=== PATIENT | male | born 1940 | race Caucasian/White ===

== ENCOUNTER 2018-02-09 14:22 | Emergency (ER) | payer OTHER, MEDICARE ==
[~2018-02-09] VITALS: Ht 167.6 cm; Wt 65.8 kg
--- NOTE | 2018-02-09 14:40 | NUR ---
pt is in room #2a. dr Natarajan evaluated the pt.
[2018-02-09 15:10] LABS: BASOPHILS # (AUTO) 0.1 K/uL (0.0-8.0); BASOPHILS % (AUTO) 0.5 % (0.0-2.0); EOSINOPHILS # (AUTO) 0.1 K/uL (0.0-0.7); EOSINOPHILS % (AUTO) 0.5 % (0.0-7.0); HEMATOCRIT 46.2 % (36.7-47.1); HEMOGLOBIN 15.8 g/dL (12.5-16.3); LYMPHOCYTES # (AUTO) 1.1 K/uL (20.0-40.0); LYMPHOCYTES % (AUTO) 8.6 % (20.5-51.5); MEAN CORPUSCULAR HEMOGLOBIN 31.7 uug (23.8-33.4); MEAN CORPUSCULAR HGB CONC 34 g/dL (32.5-36.3); MEAN CORPUSCULAR VOLUME 92.8 fL (73.0-96.2); MONOCYTES # (AUTO) 0.9 K/uL (2.0-10.0); MONOCYTES % (AUTO) 6.6 % (0.0-11.0); NEUTROPHILS # (AUTO) 10.8 K/uL (1.8-8.9); NEUTROPHILS % (AUTO) 83.8 % (38.5-71.5); PLATELET COUNT (AUTO) 204 K/uL (152-348); RED BLOOD CELL COUNT(AUTO) 4.98 MIL/uL (4.06-5.63)
[2018-02-09] MEDS ORDERED: ASPI81TA31 PO (15:16)
[2018-02-09] MEDS ORDERED: INSULIN (15:16)
[2018-02-09] MEDS ORDERED: METFORMIN (15:16)
[2018-02-09] MEDS ORDERED: GLIPIZIDE (15:16)
[2018-02-09] MEDS ORDERED: BP MEDICATION (15:16)
--- NOTE | 2018-02-09 15:16 | NUR ---
PT UNABLE TO GIVE MEDS AND DOSAGES OF HIS MEDS HE CANNOT RECALL THEM - STATES HE HAS NOT REALLY PAID ATTENTION TO THE DOSAGES .
[2018-02-09 15:23] LABS: CARBON DIOXIDE 26 mmol/L (21-32); CHLORIDE 103 mmol/L (98-107); CREATININE 1.1 mg/dL (0.6-1.3); GLUCOSE 142 mg/dL (74-106); POTASSIUM 3.2 mmol/L (3.5-5.1); UREA NITROGEN, BLOOD 18 mg/dL (7-18)
[2018-02-09 15:39] LABS: ALANINE AMINOTRANSFERASE 24 U/L (16-63); ALKALINE PHOSPHATASE 102 U/L (50-136); ASPARTATE AMINOTRANSFERASE 19 U/L (15-37); BILIRUBIN,DIRECT 0.1 mg/dL (0.0-0.2); BILIRUBIN,TOTAL 0.5 mg/dL (0.2-1.0); TOTAL PROTEIN, SERUM 7.9 g/dL (6.4-8.2)
--- NOTE | 2018-02-09 19:21 | NUR ---
PT DECIDED TO LEAVE HOSPITAL AMA. DR OLIVO EXPLAINED ALL RISKS OF LEAVING HOSPITAL AMA TO THE PT. PT VERBALIZED FULL UNDERSTANDING OF 's INSTRUCTIONS. PT SIGNED AMA FORM AND LEFT HOSPITAL WITH HIS SISTER. GAIT IS STABLE. NO S/S OF DISTRESS AT THE TIME OF DISCHARGE. NO NAUSE, NO DIZZINESS, PT DENIES PAIN.
[2018-02-09 19:25] VITALS: BP 142/81
== END 2018-02-09 19:27 | disposition left against medical advice (07) ==
LOC: ER 14:22 → TELE 18:52 → UNDOADMIN 18:52
DX: R55 Syncope and collapse (principal); I10 Essential (primary) hypertension; E11.9 Type 2 diabetes mellitus without complications; E78.5 Hyperlipidemia, unspecified
CPT/HCPCS: 36415; 71045; 80048; 80076; 83880; 84484; 85025; 85730; 93005; 99285; A4663; 70030-TC

== ENCOUNTER 2020-05-21 05:40 | Inpatient (IN) | payer MEDICARE, OTHER ==
[~2020-05-21] VITALS: Ht 172.7 cm; Wt 69.1 kg
[~2020-05-21 05:40] MED LIST: ASPI81TA31 PO; BP MEDICATION; GLIPIZIDE; INSULIN; METFORMIN
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
--- NOTE | 2020-05-21 06:30 | NUR ---
Dr Thomas at bedside for MSE.
[2020-05-21 06:33] LABS: BASOPHILS % (AUTO) 0.2 % (0.0-2.0); EOSINOPHILS # (AUTO) 0.1 K/uL (0.0-0.7); EOSINOPHILS % (AUTO) 0.6 % (0.0-7.0); HEMATOCRIT 49.2 % (36.7-47.1); HEMOGLOBIN 16.9 g/dL (12.5-16.3); LYMPHOCYTES # (AUTO) 0.8 K/uL (20.0-40.0); LYMPHOCYTES % (AUTO) 7.6 % (20.5-51.5); MEAN CORPUSCULAR HEMOGLOBIN 31.6 uug (23.8-33.4); MEAN CORPUSCULAR HGB CONC 34 g/dL (32.5-36.3); MEAN CORPUSCULAR VOLUME 91.7 fL (73.0-96.2); MONOCYTES # (AUTO) 0.7 K/uL (2.0-10.0); MONOCYTES % (AUTO) 6.4 % (0.0-11.0); NEUTROPHILS # (AUTO) 9.1 K/uL (1.8-8.9); NEUTROPHILS % (AUTO) 85.2 % (38.5-71.5); PLATELET COUNT (AUTO) 393 K/uL (152-348); RED BLOOD CELL COUNT(AUTO) 5.36 MIL/uL (4.06-5.63); WHITE BLOOD COUNT (AUTO) 10.6 K/uL (3.6-10.2)
[2020-05-21] MEDS ORDERED: FAMOTIDINE. 20 MG/2 ML VIAL IV ONE ×2 (06:45→06:50)
[2020-05-21] MEDS ORDERED: IV NORMAL SALINE 500 ML BAG IV ONE (06:45)
[2020-05-21 06:55] LABS: ALANINE AMINOTRANSFERASE 26 U/L (16-63); ALKALINE PHOSPHATASE 127 U/L (50-136); ASPARTATE AMINOTRANSFERASE 18 U/L (15-37); BILIRUBIN,DIRECT 0.5 mg/dL (0.0-0.2); BILIRUBIN,TOTAL 1.3 mg/dL (0.2-1.0); CARBON DIOXIDE 26 mmol/L (21-32); CHLORIDE 97 mmol/L (98-107); CREATININE 1.4 mg/dL (0.6-1.3); POTASSIUM 3.9 mmol/L (3.5-5.1); UREA NITROGEN, BLOOD 29 mg/dL (7-18)
[2020-05-21] MEDS ORDERED: IV NORMAL SALINE 250 ML BAG IV ONE (07:00)
[2020-05-21 07:03] LABS: GLUCOSE 606 mg/dL (74-106)
[2020-05-21 07:03] LABS: ETHANOL < 3 MG/DL (0-0)
--- NOTE | 2020-05-21 07:14 | NUR ---
Recieved pt in bed, dozing off. NAD noted.
[2020-05-21 07:20] LABS: MAGNESIUM 2.1 mg/dL (1.8-2.4)
[2020-05-21] MEDS ORDERED: PIPERACILLIN SODIUM/TAZOBACTAM 3.375 G in IV DEXTROSE 5% 50 ML IV ONE (07:30)
[2020-05-21] MEDS ORDERED: PIPERACILLIN/TAZOBACTAM/D5W 50 ML IV ONE (07:40)
[2020-05-21] MEDS ORDERED: ONDANSETRON 4 MG/2 ML VIAL ONE (08:12)
[2020-05-21] MEDS ORDERED: ONDANSETRON 4 MG/2 ML VIAL IM ONE (08:15)
[2020-05-21 09:06] LABS: *AMPHETAMINE, URINE NEGATIVE (NEGATIVE); *CANNABINOID, URINE NEGATIVE (NEGATIVE); *COCCAINE, URINE NEGATIVE (NEGATIVE); *OPIATE, URINE NEGATIVE (NEGATIVE); *PHENCYCLIDINE SCREEN,URINE NEGATIVE (NEGATIVE)
--- NOTE | 2020-05-21 09:10 | NUR ---
Pt able to tolorate Po fluids. made aware.
[2020-05-21 09:14] LABS: *BILIRUBIN,URIN NEGATIVE (NEGATIVE); *BLOOD, URINE 1+ (NEGATIVE); *CLARITY,URINE CLEAR (CLEAR); *COLOR,URINE YELLOW (YELLOW); *KETONES,URINE 2+ (NEGATIVE); LEUKOCYTE ESTERASE ,URINE NEGATIVE (NEGATIVE); NITRITE, URINE NEGATIVE (NEGATIVE); UGLUCOSE 2+ (NEGATIVE)
--- NOTE | 2020-05-21 09:26 | NUR ---
JOSE MANUEL Gracia spoke to Shamika Melara pt to be admitted to [facility].
--- NOTE | 2020-05-21 10:00 | NUR ---
Admitted via [place]. Alert & forgetful with periods of confusion. Viviane Melara ELIGIBILITY WORKER here.
[2020-05-21 10:27] VITALS: BP 133/77
[2020-05-21] MEDS ORDERED: ACETAMINOPHEN 325 MG TABLET PO PRN (11:00)
[2020-05-21] MEDS ORDERED: ONDANSETRON 4 MG/2 ML VIAL IV PRN (11:00)
[2020-05-21] MEDS ORDERED: Z GUARD REMEDY PASTE 57 GM TUBE TOP PRN (11:00)
[2020-05-21] MEDS ORDERED: ZOLPIDEM 5 MG TABLET PO PRN (11:00)
[2020-05-21] MEDS ORDERED: HYDROCODONE/APAP 5-325MG TABLET PO PRN (11:00)
[2020-05-21] MEDS ORDERED: DEXTROSE 50% 50 ML DISP.SYRIN IV PRN (11:00)
[2020-05-21] MEDS ORDERED: MAGNESIUM HYDROXIDE 30 ML LIQUID UDC PO PRN (11:00)
[2020-05-21] MEDS ORDERED: ENOXAPARIN SODIUM 30 MG/0.3 ML DISP.SYRIN SQ SCH (11:00)
[2020-05-21 11:35] LABS: SQUAMOUS EPITHELIAL CELL,UR FEW /HPF (NONE SEEN); WBC,URINE 0-3 /HPF (0-3)
[2020-05-21 11:36] LABS: BACTERIA,URINE FEW /HPF (NONE SEEN)
[2020-05-21] MEDS: ENOXAPARIN SODIUM 40 MG/0.4 ML DISP.SYRIN SQ SCH (11:55)
[2020-05-21] MEDS: BLOOD SUGAR DIAGNOSTIC 1 EACH STRIP VI SCH ×3 (12:21→19:57)
[2020-05-21] MEDS: INSULIN REGULAR, HUMAN 300 UNIT/3 ML VIAL SQ PRN (12:26)
--- NOTE | 2020-05-21 12:45 | NUR ---
INCREASED CONFUSION & AGITATION. CLIMBING OOB, DC'D TELE MULTIPLE TIMES. REPLACED PRN. AIR CONTROL ELECTRONICS OPERATOR AWARE OF CONDITION.
[2020-05-21] MEDS: LORAZEPAM 2 MG/1 ML VIAL IV PRN ×2 (14:15→20:08)
--- NOTE | 2020-05-21 14:15 | NUR ---
MED IV fOR AGITATION WITH MINIMAL EFFECT AFTER 45 MINS. PLACED IN ANTONIO CHAIR. PATIENT CLIMBED OUT OF CHAIR. ASSISTED TO BED.
[2020-05-21] MEDS: IV NS 1000 ML 1,000 ML IV PRN (14:30)
[2020-05-21 16:09] VITALS: BP 127/81
--- NOTE | 2020-05-21 18:30 | NUR ---
CONDITION UNCHANGED. 1:1 SITTER ORDERED FOR SAFETY.
[2020-05-21 20:00] VITALS: BP 158/68
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
[2020-05-21] MEDS: FAMOTIDINE. 20 MG/2 ML VIAL IV SCH (21:38)
[2020-05-22] VITALS: BP 109/55
--- NOTE | 2020-05-22 01:30 | NUR ---
REFUSING SCD HOSE. MAKING HIM MORE AGITATED.
[2020-05-22] MEDS: IV NS 1000 ML 1,000 ML IV PRN (03:12)
[2020-05-22] MEDS: BLOOD SUGAR DIAGNOSTIC 1 EACH STRIP VI SCH ×8 (03:20→23:33)
[2020-05-22] MEDS: INSULIN REGULAR, HUMAN 300 UNIT/3 ML VIAL SQ PRN ×4 (03:22→23:35)
[2020-05-22 04:00] VITALS: BP 106/85
[2020-05-22] MEDS ORDERED: DEXTROSE 50% 50 ML DISP.SYRIN IV PRN (04:00)
--- NOTE | 2020-05-22 04:00 | NUR ---
Accu check done earlier and covered.
--- NOTE | 2020-05-22 05:30 | NUR ---
Restless and agitated all night. Has not slept. Inc. urine & small stool with diaper changed prn.
[2020-05-22 07:05] LABS: BASOPHILS % (AUTO) 0.4 % (0.0-2.0); EOSINOPHILS # (AUTO) 0.2 K/uL (0.0-0.7); EOSINOPHILS % (AUTO) 1.6 % (0.0-7.0); HEMATOCRIT 43.9 % (36.7-47.1); HEMOGLOBIN 15.3 g/dL (12.5-16.3); LYMPHOCYTES # (AUTO) 1.2 K/uL (20.0-40.0); LYMPHOCYTES % (AUTO) 11.1 % (20.5-51.5); MEAN CORPUSCULAR HEMOGLOBIN 31.1 uug (23.8-33.4); MEAN CORPUSCULAR HGB CONC 35 g/dL (32.5-36.3); MEAN CORPUSCULAR VOLUME 89.1 fL (73.0-96.2); MONOCYTES # (AUTO) 0.7 K/uL (2.0-10.0); MONOCYTES % (AUTO) 6.8 % (0.0-11.0); NEUTROPHILS # (AUTO) 8.5 K/uL (1.8-8.9); NEUTROPHILS % (AUTO) 80.1 % (38.5-71.5); PLATELET COUNT (AUTO) 415 K/uL (152-348); RED BLOOD CELL COUNT(AUTO) 4.93 MIL/uL (4.06-5.63); WHITE BLOOD COUNT (AUTO) 10.6 K/uL (3.6-10.2)
[2020-05-22 07:14] LABS: BILIRUBIN,TOTAL 0.7 mg/dL (0.2-1.0); MAGNESIUM 1.9 mg/dL (1.8-2.4); PHOSPHOROUS 1.9 mg/dL (2.5-4.9); POTASSIUM 3.3 mmol/L (3.5-5.1)
--- NOTE | 2020-05-22 07:20 | NUR ---
Received patient awake in bed, sitter at bedside. Nos/s of acute distress. Bed in lowest position, side rails up x2, call light within reach, will continue to monitor.
[2020-05-22 08:00] VITALS: BP 123/73
[2020-05-22] MEDS: FAMOTIDINE. 20 MG/2 ML VIAL IV SCH ×2 (08:41→21:17)
[2020-05-22] MEDS: ASPIRIN 81 MG TAB.CHEW PO SCH (08:41)
[2020-05-22] MEDS: ENOXAPARIN SODIUM 40 MG/0.4 ML DISP.SYRIN SQ SCH (08:42)
[2020-05-22] MEDS ORDERED: PANTOPRAZOLE SODIUM 40 MG VIAL IV SCH (09:00)
[2020-05-22] MEDS ORDERED: POTASSIUM CHLORIDE 50 ML IV SCH (11:15)
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
[2020-05-22] MEDS: POTASSIUM PHOSPHATE MM 7.5 MMOL in IV NORMAL SALINE 97.5 ML IV SCH ×3 (13:48→20:12)
[2020-05-22] MEDS: LORAZEPAM 2 MG/1 ML VIAL IV PRN ×2 (14:46→21:17)
[2020-05-22 17:00] VITALS: BP 127/71
--- NOTE | 2020-05-22 18:20 | NUR ---
Patient A&O1 and confused. Patient SR to ST on the monitor. Patient shows no s/s of respiratory distress. Patient shows no s/s of pain. Patient agitated at times and very restless. Safety measures implemented bed in lowest position, side rails up x2, call light within reach, sitter at bedside. Will endorse to oncoming nurse.
--- NOTE | 2020-05-22 19:30 | NUR ---
Received patient in a Romina chair with sitter 1:1 at bedside. Eyes closed at all times. Appears restless, and can not communicate with staff. Hand mittens in used on both hand, no s/s of circulation impairment noted. safety measures and fall prevention maintained. Continue care as planned.
[2020-05-22 20:22] VITALS: BP 151/83
[2020-05-23 00:47] VITALS: BP 157/78
[2020-05-23] MEDS: IV NS 1000 ML 1,000 ML IV PRN (01:01)
[2020-05-23] MEDS: BLOOD SUGAR DIAGNOSTIC 1 EACH STRIP VI SCH ×5 (03:54→20:00)
[2020-05-23 05:59] VITALS: BP 156/46
--- NOTE | 2020-05-23 06:11 | NUR ---
Shift End Report: Able to slept late at night. Sitter remain at bedside. More comfortable sitting in the Romina chair the rest of the night. BP remain on the 150's. No s/s of hypertension. No fall/injury reported. Continue care as planned.
[2020-05-23 06:30] LABS: POTASSIUM 3.5 mmol/L (3.5-5.1)
--- NOTE | 2020-05-23 06:56 | NUR ---
In and out catheterization performed obtained 700 cc clear braden colored urine. Patient tolerated procedure well.
--- NOTE | 2020-05-23 06:56 | NUR ---
FITTER UP reported that patient did not void. No bladder discomforts presented. Unable to assessed bladder distention due to restlessness and uncooperativeness. Bladder scan performed and showed 391 ml. Charge Nurse made aware. MD made aware and kerrie to do In and Out catheterization.
--- NOTE | 2020-05-23 08:30 | NUR ---
Pt found on floor. No 1:1 sitter available since change of shift. Plastic Manager aware. Notified GAME PRODUCER Katarzyna Cat. No apparent injury to patient. Pt very combative. Unable to do CT of head secondary to pt wont be able to keep still. Pt pulled out IV. Mittens on Patient. Changed pts' room close to nursing to keep better eye on patient since no 1:1 available per control room supervisor. Bed alarm on. Continue to implement fall precaution.
[2020-05-23] MEDS: ASPIRIN 81 MG TAB.CHEW PO SCH ×2 (09:00→09:07)
[2020-05-23] MEDS: FAMOTIDINE. 20 MG/2 ML VIAL IV SCH ×2 (09:06→22:39)
[2020-05-23] MEDS: ENOXAPARIN SODIUM 40 MG/0.4 ML DISP.SYRIN SQ SCH (09:09)
[2020-05-23] MEDS: LORAZEPAM 2 MG/1 ML VIAL IV PRN ×2 (09:19→22:39)
--- NOTE | 2020-05-23 11:00 | NUR ---
Ativan given earlier secondary to pt combative and agitated Non effective. Ativan actually increased agitation of patient. Got order Restraint.
[2020-05-23] MEDS ORDERED: IV D5/ 0.9% NACL 1,000 ML IV PRN (13:30)
--- NOTE | 2020-05-23 14:29 | NUR ---
VIKRAM attempted to contact the individuals listed on patient's face sheet: Cady Dorys (--[phone]) and Danilo Scott Jr (son--[phone]). VIKRAM called Cady Dorys, but the phone went to a direct automated message, stating that the person is unable to receive calls at this time. VIKRAM called Danilo Scott Jr., but was not able to connect with him. VIKRAM left a voicemail message asking Danilo to call this SW back.
[2020-05-23 15:37] VITALS: BP 156/91
--- NOTE | 2020-05-23 16:32 | NUR ---
VIKRAM received a call back from patient's son Moises Scott Jr., . Moises stated that patient has been mostly homeless, and he is often in a park. Moises stated that he is not able to provide for the patient, given his limited resources at this time, however patient's other son Danilo has tried to have the patient live with him, but patient tends to "sneak out" frequently. Moises stated that the family would like for the patient to be placed in a SNF so that the patient can receive the necessary care and help with his needs. Moises asked for the SNF to be near the [facility] and [place], since him and his brother live in those [facility]. VIKRAM stated that SW will let case management know about the family's request. VIKRAM also verified additional contact information listed on patient's face sheet, Cady Saul. Moises stated that Cady was the patient's friend, but that Cady a couple of months ago. Current contact information for the patient is: Danilo Scott, son, Moises Scott Jr., son,
--- NOTE | 2020-05-23 16:46 | NUR ---
VIKRAM spoke with case management coordinator Karon, who stated that she has also been in contact with patient's sons Moises and Danilo, and that they are both requesting for patient to be placed in a SNF. Karon stated that she is working on family's requested DC plan and will coordinate with family once placement is confirmed.
[2020-05-23] MEDS: INSULIN REGULAR, HUMAN 300 UNIT/3 ML VIAL SQ PRN ×2 (17:33→21:40)
--- NOTE | 2020-05-23 19:00 | NUR ---
Received patient from AM nurse. Stable condition. Safety measures in place. Will monitor, assess, continue plan of care.
[2020-05-23 20:10] VITALS: BP 151/84
[2020-05-24] MEDS: BLOOD SUGAR DIAGNOSTIC 1 EACH STRIP VI SCH ×6 (00:49→20:53)
[2020-05-24] MEDS: INSULIN REGULAR, HUMAN 300 UNIT/3 ML VIAL SQ PRN ×6 (00:50→20:59)
[2020-05-24] MEDS ORDERED: OLANZAPINE 10 MG VIAL IM ONE (01:30)
[2020-05-24] MEDS: IV D5/ 0.9% NACL 1,000 ML IV PRN ×3 (02:33→21:36)
[2020-05-24 04:50] VITALS: BP 145/82
--- NOTE | 2020-05-24 06:56 | NUR ---
Patient handed off to AM nurse. Stable condition. Will endorse all necessary information.
--- NOTE | 2020-05-24 07:15 | NUR ---
Received PT in bed, awake and confused. PT's vitals WNL. Safety measures provided, call light within reach, bed low and lock.
[2020-05-24 08:08] LABS: BASOPHILS % (AUTO) 0.4 % (0.0-2.0); EOSINOPHILS # (AUTO) 0.2 K/uL (0.0-0.7); EOSINOPHILS % (AUTO) 1.9 % (0.0-7.0); HEMATOCRIT 30.1 % (36.7-47.1); LYMPHOCYTES # (AUTO) 1.4 K/uL (20.0-40.0); LYMPHOCYTES % (AUTO) 16.8 % (20.5-51.5); MEAN CORPUSCULAR HEMOGLOBIN 33.5 uug (23.8-33.4); MEAN CORPUSCULAR HGB CONC 33 g/dL (32.5-36.3); MEAN CORPUSCULAR VOLUME 100.6 fL (73.0-96.2); MONOCYTES # (AUTO) 0.8 K/uL (2.0-10.0); MONOCYTES % (AUTO) 9.2 % (0.0-11.0); NEUTROPHILS # (AUTO) 5.8 K/uL (1.8-8.9); NEUTROPHILS % (AUTO) 71.7 % (38.5-71.5); PLATELET COUNT (AUTO) 178 K/uL (152-348); RED BLOOD CELL COUNT(AUTO) 2.99 MIL/uL (4.06-5.63); WHITE BLOOD COUNT (AUTO) 8.1 K/uL (3.6-10.2)
[2020-05-24 08:13] LABS: CARBON DIOXIDE 22 mmol/L (21-32); CHLORIDE 111 mmol/L (98-107); CREATININE 2.4 mg/dL (0.6-1.3); GLUCOSE 103 mg/dL (74-106); MAGNESIUM 1.7 mg/dL (1.8-2.4); PHOSPHOROUS 2.8 mg/dL (2.5-4.9); POTASSIUM 4.4 mmol/L (3.5-5.1); UREA NITROGEN, BLOOD 25 mg/dL (7-18)
[2020-05-24] MEDS: FAMOTIDINE. 20 MG/2 ML VIAL IV SCH ×2 (08:23→21:36)
[2020-05-24] MEDS: ENOXAPARIN SODIUM 40 MG/0.4 ML DISP.SYRIN SQ SCH (08:23)
[2020-05-24] MEDS: ASPIRIN 81 MG TAB.CHEW PO SCH (08:27)
[2020-05-24] MEDS ORDERED: MAGNESIUM SULFATE/D5W 100 ML IV SCH (10:00)
[2020-05-24 11:00] VITALS: BP 117/60
[2020-05-24] MEDS ORDERED: IV NS 1000 ML 1,000 ML IV ONE (12:15)
[2020-05-24 15:09] VITALS: BP 130/52
[2020-05-24] MEDS: LORAZEPAM 2 MG/1 ML VIAL IV PRN (16:30)
--- NOTE | 2020-05-24 16:40 | NUR ---
PT seemed agitated and restless. Provided nonpharmaceutical interventions, not effective. Administered Ativan IV per MD's order. Will continue to monitor. Safety measures provided, call light within reach.
--- NOTE | 2020-05-24 18:45 | NUR ---
PT in bed, confused but relaxed. No signs of acute distress noted or no shortness of breath. Safety measures provided, Call light within reach, bed low and lock. Will endorse to night custodian nurse
--- NOTE | 2020-05-24 19:00 | NUR ---
patient received on bed asleep.but still noted moving around right to left. with bilateral soft wrist restraints for safety as patient is unable to follow instructions.bilateral mittens on as received but removed as the patient has a sitter and bilateral soft wrist restraints, vital signs checked and recorded, npo as ordered, with ivf consumed and followed up.
[2020-05-25] MEDS: BLOOD SUGAR DIAGNOSTIC 1 EACH STRIP VI SCH ×8 (00:12→23:59)
--- NOTE | 2020-05-25 00:37 | NUR ---
patient accucheck 153mg/dl. report given to another rn for further care,.
--- NOTE | 2020-05-25 00:38 | NUR ---
HANDS OFF REPORT RECEIVED. PT IN NO ACUTE DISTRESS. SITTER AT BEDSIDE FOR SAFETY. IV INTACT. SAFETY AND COMFORT PROVIDED. WILL CONTINUE TO MONITOR.
[2020-05-25] MEDS: INSULIN REGULAR, HUMAN 300 UNIT/3 ML VIAL SQ PRN ×4 (00:50→20:57)
[2020-05-25] MEDS: LORAZEPAM 2 MG/1 ML VIAL IV PRN ×2 (01:54→23:33)
--- NOTE | 2020-05-25 01:54 | NUR ---
ATIVAN PRN GIVEN FOR PT IS RESTLESS. PT TOLERATED IT WELL. 1:1 SITTER FOR SAFETY.
--- NOTE | 2020-05-25 04:31 | NUR ---
ACCU-CHECK NOT ADMINISTERED BECAUSE PT JUST SLEPT. PT IN NO ACUTE DISTRESS. SITTER AT BEDSIDE. WILL CONTINUE TO MONITOR.
[2020-05-25 06:12] LABS: BASOPHILS % (AUTO) 0.5 % (0.0-2.0); EOSINOPHILS # (AUTO) 0.1 K/uL (0.0-0.7); HEMATOCRIT 46.5 % (36.7-47.1); LYMPHOCYTES # (AUTO) 1.2 K/uL (20.0-40.0); LYMPHOCYTES % (AUTO) 12.3 % (20.5-51.5); MEAN CORPUSCULAR HEMOGLOBIN 31.2 uug (23.8-33.4); MEAN CORPUSCULAR HGB CONC 35 g/dL (32.5-36.3); MEAN CORPUSCULAR VOLUME 90.4 fL (73.0-96.2); MONOCYTES # (AUTO) 0.9 K/uL (2.0-10.0); MONOCYTES % (AUTO) 9.8 % (0.0-11.0); NEUTROPHILS # (AUTO) 7.3 K/uL (1.8-8.9); NEUTROPHILS % (AUTO) 76.4 % (38.5-71.5); PLATELET COUNT (AUTO) 407 K/uL (152-348); RED BLOOD CELL COUNT(AUTO) 5.14 MIL/uL (4.06-5.63); WHITE BLOOD COUNT (AUTO) 9.6 K/uL (3.6-10.2)
[2020-05-25 06:54] LABS: MAGNESIUM 1.6 mg/dL (1.8-2.4); PHOSPHOROUS 2.4 mg/dL (2.5-4.9); POTASSIUM 2.9 mmol/L (3.5-5.1)
--- NOTE | 2020-05-25 07:01 | NUR ---
PT SLEPT INTERMITTENTLY. PT IV INTACT. PT ON 2L NASAL CANNULA. PT ON RESTRAINT. SITTER AT BEDSIDE FOR SAFETY. 0548H UNSCHEDULED ACCU-CHECK DONE SINCE PT DOESN'T HAVE ACCU-CHECK AT 0400H. PT BLOOD SUGAR IS 236 AND 6UNIT INSULIN GIVEN. SKIN ISSUES NOTED. PT TURNED AND REPOSITIONED. PRESCRIBED MEDICATION GIVEN AND PT TOLERATED IT WELL. SAFETY AND COMFORT PROVIDED. ALL NEEDS ARE MET. WILL ENDORSE TO INCOMING NURSE FOR CONTINUITY OF CARE.
--- NOTE | 2020-05-25 07:02 | NUR ---
ENDORSED TO INCOMING NURSE REGRADING ORDER TO GET MEDICAL RECORD FROM TRAFFIC RATE COMPUTER AND ONCOLOGIST.. NO ALL ROUND BUTCHER ON DAYSHIFT.
[2020-05-25] MEDS: ENOXAPARIN SODIUM 40 MG/0.4 ML DISP.SYRIN SQ SCH (08:38)
[2020-05-25] MEDS: FAMOTIDINE. 20 MG/2 ML VIAL IV SCH ×2 (08:39→20:40)
[2020-05-25] MEDS: ASPIRIN 81 MG TAB.CHEW PO SCH (08:39)
[2020-05-25 10:41] VITALS: BP 151/63
[2020-05-25] MEDS: MAGNESIUM SULFATE/D5W 100 ML IV SCH ×2 (11:19→13:47)
[2020-05-25] MEDS: IV 1/2NS 1000 ML 1,000 ML IV PRN (14:03)
[2020-05-25] MEDS: POTASSIUM CHLORIDE 50 ML IV SCH ×6 (14:16→17:11)
[2020-05-25 15:55] VITALS: BP 158/96
[2020-05-25 16:03] LABS: *BILIRUBIN,URIN NEGATIVE (NEGATIVE); *BLOOD, URINE 1+ (NEGATIVE); *COLOR,URINE YELLOW (YELLOW); *KETONES,URINE 1+ (NEGATIVE); LEUKOCYTE ESTERASE ,URINE NEGATIVE (NEGATIVE); NITRITE, URINE NEGATIVE (NEGATIVE); PH,URINE 6.5 (5.0-8.0); UGLUCOSE TRACE (NEGATIVE)
[2020-05-25 16:08] LABS: *CLARITY,URINE SLIGHTLY CLOUDY (CLEAR)
[2020-05-25 16:22] LABS: *CREATININE,URINE 38.9 mg/dL (30-125); *URINE TOTAL PROTEIN RANDOM 40.5 mg/dL (<150/24HR)
[2020-05-25] MEDS ORDERED: POTASSIUM PHOSPHATE MM 7.5 MMOL in IV NORMAL SALINE 97.5 ML IV ONE (17:30)
[2020-05-25 18:43] LABS: BACTERIA,URINE NONE SEEN /HPF (NONE SEEN); SQUAMOUS EPITHELIAL CELL,UR FEW /HPF (NONE SEEN); WBC,URINE 0-3 /HPF (0-3); YEAST,URINE MODERATE /HPF (NONE SEEN)
--- NOTE | 2020-05-25 19:30 | NUR ---
Received pt alert to self laying in bed. Does not appear to be in any acute distress at this time. Sitter is at bedside. Pt has soft restraints on. Will continue to monitor
[2020-05-25 20:20] VITALS: BP 134/77
[2020-05-26] VITALS: BP 139/92
[2020-05-26] MEDS: IV 1/2NS 1000 ML 1,000 ML IV PRN (03:12)
[2020-05-26 04:00] VITALS: BP 119/68
[2020-05-26] MEDS: INSULIN REGULAR, HUMAN 300 UNIT/3 ML VIAL SQ PRN ×3 (04:05→21:38)
[2020-05-26] MEDS: BLOOD SUGAR DIAGNOSTIC 1 EACH STRIP VI SCH ×5 (04:10→20:00)
[2020-05-26 07:38] VITALS: BP 132/61
[2020-05-26 08:27] LABS: BASOPHILS % (AUTO) 0.5 % (0.0-2.0); EOSINOPHILS # (AUTO) 0.1 K/uL (0.0-0.7); EOSINOPHILS % (AUTO) 0.9 % (0.0-7.0); HEMATOCRIT 45.1 % (36.7-47.1); HEMOGLOBIN 15.4 g/dL (12.5-16.3); LYMPHOCYTES % (AUTO) 9.7 % (20.5-51.5); MEAN CORPUSCULAR HEMOGLOBIN 30.5 uug (23.8-33.4); MEAN CORPUSCULAR HGB CONC 34 g/dL (32.5-36.3); MEAN CORPUSCULAR VOLUME 89.5 fL (73.0-96.2); MONOCYTES # (AUTO) 0.8 K/uL (2.0-10.0); MONOCYTES % (AUTO) 8.3 % (0.0-11.0); NEUTROPHILS # (AUTO) 8.1 K/uL (1.8-8.9); NEUTROPHILS % (AUTO) 80.6 % (38.5-71.5); PLATELET COUNT (AUTO) 374 K/uL (152-348); RED BLOOD CELL COUNT(AUTO) 5.04 MIL/uL (4.06-5.63)
[2020-05-26] MEDS: ASPIRIN 81 MG TAB.CHEW PO SCH (08:44)
--- NOTE | 2020-05-26 08:45 | NUR ---
Dose of Aspirin held due to patient being NPO and unable to swallow
[2020-05-26 08:46] LABS: CREATININE 0.8 mg/dL (0.6-1.3); MAGNESIUM 1.7 mg/dL (1.8-2.4); PHOSPHOROUS 3.1 mg/dL (2.5-4.9)
[2020-05-26] MEDS: FAMOTIDINE. 20 MG/2 ML VIAL IV SCH ×2 (08:48→21:21)
[2020-05-26] MEDS: ENOXAPARIN SODIUM 40 MG/0.4 ML DISP.SYRIN SQ SCH (08:49)
[2020-05-26] MEDS ORDERED: MAGNESIUM SULFATE/D5W 100 ML IV SCH (09:30)
--- NOTE | 2020-05-26 09:46 | NUR ---
Pt resting in bed, alert to self. Does not appear to be in any acute distress at this time. Performed oral care, patient tolerated well. On 2L NC with no s/s of respiratory distress. Will continue to monitor.
[2020-05-26] MEDS: POTASSIUM CHLORIDE 50 ML IV SCH ×6 (09:58→16:43)
[2020-05-26] MEDS: LORAZEPAM 2 MG/1 ML VIAL IV PRN (12:06)
[2020-05-26] MEDS ORDERED: OLANZAPINE ZYDIS 5 MG TAB.RAPDIS PO ONE (12:20)
--- NOTE | 2020-05-26 12:49 | NUR ---
WOUND CARE CONSULT: PT PRESENTS WITH RAISED AREA TO LEFT UPPER BACK WITH ABRASION, NO DRAINAGE OR ERYTHEMA. DISCUSSED WITH COCO CHAUDHARI DNP AND WOUND CARE ORDERS MADE. DISCUSSED WITH NURSING STAFF. PT MOVES ABOUT IN BED ALMOST CONSTANTLY. WILL SEE PRN. URBANO IN AGREEMENT WITH PLAN OF CARE.
--- NOTE | 2020-05-26 14:32 | NUR ---
Pt in bed resting. Does not appear to be in any acute distress at this time. Potassium Chloride is running and patient is tolerating well. Facetimed with Dr. Smith today. Pt on 2L NC with no s/s of SOB. Will endorse to oncoming nurse.
[2020-05-26 16:00] VITALS: BP 136/68
[2020-05-26 20:00] VITALS: BP 126/86
[2020-05-26] MEDS: OLANZAPINE ZYDIS 5 MG TAB.RAPDIS PO SCH (21:00)
--- NOTE | 2020-05-26 22:04 | NUR ---
Received patient in bed asleep.No s/s of distress noted.On O2 at 2LPM via NC .Saturating at 100%.Iv on Left FA 20 g patent and intact with 1/2 Ns at 100 cc/ml .Tolerated well.BS checked and Per sliding scale insulin given as ordered.Dose of Zyprexa held d/t patient is being NPO.1:1 sitter at bedside.Will continue to monitor.
[2020-05-27] VITALS: BP 113/60
[2020-05-27] MEDS: BLOOD SUGAR DIAGNOSTIC 1 EACH STRIP VI SCH ×6 (00:47→20:57)
[2020-05-27] MEDS: INSULIN REGULAR, HUMAN 300 UNIT/3 ML VIAL SQ PRN ×5 (00:53→21:00)
[2020-05-27] MEDS: IV 1/2NS 1000 ML 1,000 ML IV PRN (01:03)
[2020-05-27 04:00] VITALS: BP 130/63
[2020-05-27 05:41] VITALS: BP 112/77
[2020-05-27 07:15] LABS: BASOPHILS % (AUTO) 0.4 % (0.0-2.0); EOSINOPHILS % (AUTO) 0.4 % (0.0-7.0); HEMATOCRIT 44.2 % (36.7-47.1); HEMOGLOBIN 15.4 g/dL (12.5-16.3); LYMPHOCYTES # (AUTO) 1.1 K/uL (20.0-40.0); LYMPHOCYTES % (AUTO) 10.8 % (20.5-51.5); MEAN CORPUSCULAR HEMOGLOBIN 31.4 uug (23.8-33.4); MEAN CORPUSCULAR HGB CONC 35 g/dL (32.5-36.3); MEAN CORPUSCULAR VOLUME 89.7 fL (73.0-96.2); MONOCYTES # (AUTO) 1.2 K/uL (2.0-10.0); MONOCYTES % (AUTO) 11.1 % (0.0-11.0); NEUTROPHILS # (AUTO) 8.1 K/uL (1.8-8.9); NEUTROPHILS % (AUTO) 77.3 % (38.5-71.5); PLATELET COUNT (AUTO) 321 K/uL (152-348); RED BLOOD CELL COUNT(AUTO) 4.92 MIL/uL (4.06-5.63); WHITE BLOOD COUNT (AUTO) 10.5 K/uL (3.6-10.2)
[2020-05-27 07:18] LABS: CREATININE 0.9 mg/dL (0.6-1.3); POTASSIUM 3.5 mmol/L (3.5-5.1)
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
[2020-05-27] MEDS: POTASSIUM CHLORIDE 50 ML IV SCH ×2 (08:54→09:31)
[2020-05-27] MEDS: ASPIRIN 81 MG TAB.CHEW PO SCH (09:00)
[2020-05-27] MEDS: FAMOTIDINE. 20 MG/2 ML VIAL IV SCH ×2 (09:05→21:02)
[2020-05-27] MEDS: ENOXAPARIN SODIUM 40 MG/0.4 ML DISP.SYRIN SQ SCH (09:12)
[2020-05-27] MEDS ORDERED: OLANZAPINE ZYDIS 5 MG TAB.RAPDIS PO ONE (11:00)
--- NOTE | 2020-05-27 11:28 | NUR ---
seen and examined by JULIO CESAR Calhoun, with orders for Zyprexa Zydis, patient tolerated the zydis, patient still continuos to be restless, called and spoke with , with Orders of Haldol 2mg and ativan 1mg , via IV push, patient went to sleep after 15 minutes, sent to CT scan , returned after 40 minutes
[2020-05-27] MEDS ORDERED: HALOPERIDOL LACTATE 5 MG/1 ML VIAL IM ONE (11:45)
[2020-05-27] MEDS ORDERED: LORAZEPAM 2 MG/1 ML VIAL IV ONE (11:45)
[2020-05-27 12:00] VITALS: BP 155/70
[2020-05-27] MEDS: IV NS 1000 ML 1,000 ML IV PRN (14:47)
--- NOTE | 2020-05-27 15:15 | NUR ---
Started IVF NS 0.9% as ordered
[2020-05-27 15:37] VITALS: BP 93/70
[2020-05-27 20:32] VITALS: BP 147/85
[2020-05-27] MEDS: OLANZAPINE ZYDIS 5 MG TAB.RAPDIS PO SCH (21:02)
--- NOTE | 2020-05-27 22:00 | NUR ---
Received patient in bed asleep.No s/s of distress noted.On O2 at 2LPM via NC, Saturating at 100%, no SOB noted. IV on Left FA 20 g patent and intact running NS at 100 cc/ml Blood Sugar checked and Per sliding scale insulin not given as ordered. Patient is NPO.1:1 sitter at bedside.Will continue to monitor.
[2020-05-28 00:09] VITALS: BP 116/63
[2020-05-28] MEDS: BLOOD SUGAR DIAGNOSTIC 1 EACH STRIP VI SCH ×6 (00:17→21:31)
[2020-05-28] MEDS: INSULIN REGULAR, HUMAN 300 UNIT/3 ML VIAL SQ PRN ×5 (00:20→21:37)
--- NOTE | 2020-05-28 02:30 | NUR ---
IV on Left forearm leaking. Discontinued and established Left AC 22G, patent and intact running 100 cc/hr NS. Patient is resting comfortably, no acute distress noted.
[2020-05-28] MEDS: IV NS 1000 ML 1,000 ML IV PRN (02:31)
[2020-05-28 07:00] LABS: BASOPHILS % (AUTO) 0.2 % (0.0-2.0); EOSINOPHILS % (AUTO) 0.4 % (0.0-7.0); HEMATOCRIT 43.4 % (36.7-47.1); HEMOGLOBIN 14.8 g/dL (12.5-16.3); MEAN CORPUSCULAR HEMOGLOBIN 30.8 uug (23.8-33.4); MEAN CORPUSCULAR HGB CONC 34 g/dL (32.5-36.3); MONOCYTES # (AUTO) 1.3 K/uL (2.0-10.0); MONOCYTES % (AUTO) 10.1 % (0.0-11.0); NEUTROPHILS # (AUTO) 10.5 K/uL (1.8-8.9); NEUTROPHILS % (AUTO) 81.3 % (38.5-71.5); PLATELET COUNT (AUTO) 309 K/uL (152-348); RED BLOOD CELL COUNT(AUTO) 4.82 MIL/uL (4.06-5.63); WHITE BLOOD COUNT (AUTO) 12.9 K/uL (3.6-10.2)
[2020-05-28 07:08] LABS: CARBON DIOXIDE 19 mmol/L (21-32); CHLORIDE 101 mmol/L (98-107); CREATININE 0.8 mg/dL (0.6-1.3); GLUCOSE 155 mg/dL (74-106); MAGNESIUM 1.7 mg/dL (1.8-2.4); PHOSPHOROUS 2.4 mg/dL (2.5-4.9); POTASSIUM 3.3 mmol/L (3.5-5.1); UREA NITROGEN, BLOOD 12 mg/dL (7-18)
[2020-05-28 08:00] VITALS: BP 134/87
[2020-05-28] MEDS: ASPIRIN 81 MG TAB.CHEW PO SCH (08:48)
[2020-05-28] MEDS: ENOXAPARIN SODIUM 40 MG/0.4 ML DISP.SYRIN SQ SCH (08:51)
[2020-05-28] MEDS: FAMOTIDINE. 20 MG/2 ML VIAL IV SCH ×2 (09:12→21:14)
[2020-05-28] MEDS ORDERED: POTASSIUM PHOSPHATE MM 7.5 MMOL in IV NORMAL SALINE 97.5 ML IV ONE (10:00)
[2020-05-28] MEDS: POTASSIUM CHLORIDE 50 ML IV SCH ×4 (10:32→13:48)
[2020-05-28] MEDS: MAGNESIUM SULFATE/D5W 100 ML IV SCH ×2 (10:32→12:39)
[2020-05-28 11:46] VITALS: BP 123/61
[2020-05-28] MEDS ORDERED: DEXTROSE 50% 50 ML DISP.SYRIN IV PRN (13:30)
[2020-05-28] MEDS: GLUCERNA SHAKE VANILLA 237 ML CAN PO SCH ×2 (13:30→17:37)
[2020-05-28] MEDS: CEFTRIAXONE 1 G in IV DEXTROSE 5% 50 ML IV SCH (14:24)
[2020-05-28 15:57] VITALS: BP 135/79
--- NOTE | 2020-05-28 17:15 | NUR ---
CALLED TO N/T SUCTION PATIENT. UPON ARRIVAL, PATIENT IN NO RESPIRATORY DISTRESS. BREATH SOUNDS BILATERALLY CLEAR, DIMINISHED. O2 SAT 98%. N/T SMALL AMOUNT OF THICK, BROWN SECRETIONS. TRAUMA FROM SUCTION CATHETER CAUSED MODERATE AMOUNT OF BLOOD TINGED SECRETIONS. REYMUNDO DAVIS PRESENT DURING PROCEDURE. WILL ENDORSE TO CLEANING TEAM MEMBER RT.
[2020-05-28 20:00] VITALS: BP 150/61
--- NOTE | 2020-05-28 20:28 | NUR ---
Received patient in bed.No s/s of distress noted.O2 at 2LPM via NC saturating well.NGT in place.No residual noted. Aspiration observed at all times.HOB remain elevated at 45 degree.Per AM nurse report Patient's IV was out.Inserted new IV on right Ac 18 g with good blood return.Started Iv NS at 100 ml/hr.Tolerated well.Due meds given.Will continue to monitor.
[2020-05-28] MEDS: OLANZAPINE ZYDIS 5 MG TAB.RAPDIS PO SCH (21:14)
[2020-05-29] MEDS: IV NS 1000 ML 1,000 ML IV PRN ×2 (00:01→10:00)
[2020-05-29] MEDS: BLOOD SUGAR DIAGNOSTIC 1 EACH STRIP VI SCH ×4 (06:31→21:11)
[2020-05-29 07:08] LABS: BASOPHILS % (AUTO) 0.3 % (0.0-2.0); EOSINOPHILS # (AUTO) 0.1 K/uL (0.0-0.7); EOSINOPHILS % (AUTO) 0.6 % (0.0-7.0); HEMATOCRIT 41.8 % (36.7-47.1); HEMOGLOBIN 14.2 g/dL (12.5-16.3); LYMPHOCYTES % (AUTO) 8.8 % (20.5-51.5); MEAN CORPUSCULAR HEMOGLOBIN 30.7 uug (23.8-33.4); MEAN CORPUSCULAR HGB CONC 34 g/dL (32.5-36.3); MEAN CORPUSCULAR VOLUME 90.4 fL (73.0-96.2); MONOCYTES # (AUTO) 1.1 K/uL (2.0-10.0); MONOCYTES % (AUTO) 9.9 % (0.0-11.0); NEUTROPHILS # (AUTO) 8.9 K/uL (1.8-8.9); NEUTROPHILS % (AUTO) 80.4 % (38.5-71.5); PLATELET COUNT (AUTO) 275 K/uL (152-348); RED BLOOD CELL COUNT(AUTO) 4.63 MIL/uL (4.06-5.63); WHITE BLOOD COUNT (AUTO) 11.1 K/uL (3.6-10.2)
[2020-05-29 07:45] LABS: CREATININE 0.8 mg/dL (0.6-1.3); MAGNESIUM 1.6 mg/dL (1.8-2.4); PHOSPHOROUS 2.6 mg/dL (2.5-4.9); POTASSIUM 3.6 mmol/L (3.5-5.1)
--- NOTE | 2020-05-29 07:45 | NUR ---
RECEIVED PATIENT IN BED, CONFUSED, SLURRED SPEECH.RESPONDS TO NAME BY OPENING EYES. RESTRAINTS ON BILATERAL WRISTS AND SOFT MITTENS ON BILATERAL HANDS. NG TUBE IN PLACED AND CLAMPED. IN TO RT. AC WITH NS AT 100CC/HR. NO SIGNS OF DISTRESS AT THIS TIME. SAFETY AND FALL PREVENTION IN PLACE. CALL LIGHT. BED IN LOW AND LOCKED POSITION. WILL CONTINUE TO MONITOR.
[2020-05-29] MEDS: ENOXAPARIN SODIUM 40 MG/0.4 ML DISP.SYRIN SQ SCH (08:37)
[2020-05-29] MEDS: FAMOTIDINE. 20 MG/2 ML VIAL IV SCH ×2 (08:38→21:04)
[2020-05-29] MEDS: ASPIRIN 81 MG TAB.CHEW PO SCH ×2 (08:39→09:43)
[2020-05-29] MEDS: GLUCERNA SHAKE VANILLA 237 ML CAN PO SCH ×3 (09:44→16:41)
[2020-05-29] MEDS: INSULIN REGULAR, HUMAN 300 UNIT/3 ML VIAL SQ PRN ×4 (09:46→21:13)
[2020-05-29 11:00] VITALS: BP 101/62
[2020-05-29] MEDS: MAGNESIUM SULFATE/D5W 100 ML IV SCH ×2 (11:21→12:10)
[2020-05-29] MEDS ORDERED: HALOPERIDOL LACTATE 5 MG/1 ML VIAL IM ONE (11:30)
[2020-05-29] MEDS: CEFTRIAXONE 1 G in IV DEXTROSE 5% 50 ML IV SCH (14:17)
[2020-05-29 16:00] VITALS: BP 146/75
--- NOTE | 2020-05-29 19:45 | NUR ---
REceived patient in bed.No acute distress noted.On O2 at @ 2LPM via NC.HOB elevated with NGT in placed. IV on Rt ac 18 g .no s/s of infiltration.NS at 100 cc/ ml.Hooper catheter in place draining well with clear yellow output.Oral care provided .Temp noted 101.Tylenol given and cooling measures provided. Restraints on varsha wrist d/t patient trying to pull out IV.Continue safety measure.Will continue to monitor.
[2020-05-29 21:00] VITALS: BP 123/47
[2020-05-29] MEDS: OLANZAPINE ZYDIS 5 MG TAB.RAPDIS PO SCH (21:25)
[2020-05-30] MEDS: IV NS 1000 ML 1,000 ML IV PRN ×3 (01:14→21:56)
[2020-05-30 04:48] VITALS: BP 112/64
[2020-05-30] MEDS: BLOOD SUGAR DIAGNOSTIC 1 EACH STRIP VI SCH ×4 (06:39→21:55)
--- NOTE | 2020-05-30 06:44 | NUR ---
Patient temp went down to 98.5.No acute distress noted.Patient alert and still confused. Morning care provided.Continue safety measures.Will endorse to oncoming shift.
--- NOTE | 2020-05-30 07:45 | NUR ---
RECEIVED PATIENT IN BED, ASLEEP, WITHDRAWS TO PAIN STIMULATION. NO SIGNS OF DISTRESSED NOTED. RIGHT AC INTACT. SAFETY AND FALL PRECAUTIONS IN PLACE. WILL CONTINUE TO MONITOR.
[2020-05-30] MEDS: FAMOTIDINE. 20 MG/2 ML VIAL IV SCH ×2 (08:45→21:03)
[2020-05-30] MEDS: ASPIRIN 81 MG TAB.CHEW PO SCH (08:45)
[2020-05-30] MEDS: ENOXAPARIN SODIUM 40 MG/0.4 ML DISP.SYRIN SQ SCH (08:46)
[2020-05-30] MEDS: GLUCERNA SHAKE VANILLA 237 ML CAN PO SCH ×3 (08:47→17:41)
[2020-05-30] MEDS: INSULIN REGULAR, HUMAN 300 UNIT/3 ML VIAL SQ PRN ×3 (08:47→17:39)
[2020-05-30 11:38] VITALS: BP 131/68
[2020-05-30 16:05] VITALS: BP 119/63
[2020-05-30] MEDS: FLUCONAZOLE 100 MG TABLET PO SCH (17:33)
--- NOTE | 2020-05-30 19:30 | NUR ---
Pt received in bed with E mitten restraints. Pt does not appear to be in any acute distress at this time. On 2L NC and does not have s/s of respiratory distress or SOB. No other issues or concerns at this time.
[2020-05-30] MEDS: OLANZAPINE ZYDIS 5 MG TAB.RAPDIS PO SCH (21:03)
[2020-05-30] MEDS: NITROFURANTOIN/NITROFURAN MAC 100 MG CAPSULE PO SCH (21:03)
[2020-05-31] MEDS: BLOOD SUGAR DIAGNOSTIC 1 EACH STRIP VI SCH ×4 (06:37→21:47)
--- NOTE | 2020-05-31 06:43 | NUR ---
Pt slept intermittently throughout the night. Was restless at some points in the night and then was attempted to be reoriented to which patient would relax. Does not appear to be in any acute distress at this time. Pt is on soft restraints and is tolerating well. On 2L NC and is sating at 100%. Safety and comfort provided. No other issues or concerns at this time. Will endorse to day shift.
[2020-05-31] MEDS: IV NS 1000 ML 1,000 ML IV PRN ×2 (06:53→16:26)
[2020-05-31] MEDS: FAMOTIDINE. 20 MG/2 ML VIAL IV SCH ×2 (08:18→21:40)
[2020-05-31] MEDS: INSULIN REGULAR, HUMAN 300 UNIT/3 ML VIAL SQ PRN ×4 (08:22→21:48)
[2020-05-31] MEDS: ASPIRIN 81 MG TAB.CHEW PO SCH (08:24)
[2020-05-31] MEDS: GLUCERNA SHAKE VANILLA 237 ML CAN PO SCH ×3 (08:24→16:05)
[2020-05-31] MEDS: NITROFURANTOIN/NITROFURAN MAC 100 MG CAPSULE PO SCH ×2 (08:24→21:40)
[2020-05-31] MEDS: FLUCONAZOLE 100 MG TABLET PO SCH (08:24)
[2020-05-31] MEDS: ENOXAPARIN SODIUM 40 MG/0.4 ML DISP.SYRIN SQ SCH (08:25)
[2020-05-31 12:12] VITALS: BP 131/76
[2020-05-31 16:37] VITALS: BP 114/87
[2020-05-31 20:28] VITALS: BP 129/91
[2020-05-31] MEDS: OLANZAPINE ZYDIS 5 MG TAB.RAPDIS PO SCH (21:40)
[2020-06-01] MEDS: IV NS 1000 ML 1,000 ML IV PRN (03:06)
[2020-06-01 04:18] VITALS: BP 94/57
[2020-06-01] MEDS: BLOOD SUGAR DIAGNOSTIC 1 EACH STRIP VI SCH ×4 (06:33→20:31)
[2020-06-01 06:45] LABS: BASOPHILS # (AUTO) 0.1 K/uL (0.0-8.0); BASOPHILS % (AUTO) 0.9 % (0.0-2.0); EOSINOPHILS # (AUTO) 0.1 K/uL (0.0-0.7); EOSINOPHILS % (AUTO) 1.6 % (0.0-7.0); HEMATOCRIT 40.8 % (36.7-47.1); HEMOGLOBIN 14.1 g/dL (12.5-16.3); LYMPHOCYTES % (AUTO) 11.6 % (20.5-51.5); MEAN CORPUSCULAR HGB CONC 35 g/dL (32.5-36.3); MEAN CORPUSCULAR VOLUME 89.8 fL (73.0-96.2); MONOCYTES # (AUTO) 0.9 K/uL (2.0-10.0); MONOCYTES % (AUTO) 11.2 % (0.0-11.0); NEUTROPHILS # (AUTO) 6.3 K/uL (1.8-8.9); NEUTROPHILS % (AUTO) 74.7 % (38.5-71.5); PLATELET COUNT (AUTO) 291 K/uL (152-348); RED BLOOD CELL COUNT(AUTO) 4.55 MIL/uL (4.06-5.63); WHITE BLOOD COUNT (AUTO) 8.4 K/uL (3.6-10.2)
[2020-06-01] MEDS: INSULIN REGULAR, HUMAN 300 UNIT/3 ML VIAL SQ PRN ×4 (07:37→20:35)
[2020-06-01 07:44] LABS: CREATININE 0.8 mg/dL (0.6-1.3); MAGNESIUM 1.6 mg/dL (1.8-2.4); PHOSPHOROUS 3.6 mg/dL (2.5-4.9); POTASSIUM 2.9 mmol/L (3.5-5.1)
[2020-06-01] MEDS: NITROFURANTOIN/NITROFURAN MAC 100 MG CAPSULE PO SCH ×2 (08:02→20:19)
[2020-06-01] MEDS: FLUCONAZOLE 100 MG TABLET PO SCH (08:02)
[2020-06-01] MEDS: ASPIRIN 81 MG TAB.CHEW PO SCH (08:02)
[2020-06-01] MEDS: ENOXAPARIN SODIUM 40 MG/0.4 ML DISP.SYRIN SQ SCH (08:04)
[2020-06-01] MEDS: FAMOTIDINE. 20 MG/2 ML VIAL IV SCH ×2 (08:36→21:26)
[2020-06-01] MEDS: GLUCERNA SHAKE VANILLA 237 ML CAN PO SCH ×3 (08:42→16:55)
[2020-06-01] MEDS ORDERED: MAGNESIUM SULFATE/D5W 100 ML IV SCH (10:15)
[2020-06-01] MEDS ORDERED: MAGNESIUM OXIDE 400 MG TABLET NG ONE (10:30)
[2020-06-01] MEDS: POTASSIUM CHLORIDE 20 MEQ POWDER PACKET NG SCH ×3 (11:03→14:35)
[2020-06-01 12:02] VITALS: BP 115/65
[2020-06-01 12:36] LABS: CSF PROTEIN 26 mg/dL (15-45)
[2020-06-01 13:07] LABS: CSF GLUCOSE 117 mg/dL (40-70)
[2020-06-01] MEDS: CHLORHEXIDINE GLUCONATE 15 ML MOUTHWASH MM SCH ×2 (15:13→20:46)
[2020-06-01 16:00] VITALS: BP 151/91
[2020-06-01 20:00] VITALS: BP 112/55
--- NOTE | 2020-06-01 20:00 | NUR ---
NSG: Received patient laying in bed. alert to name confused.HOB elevated with NGT in placed. IV on Rt ac 18 g .no s/s of infiltration.Hooper catheter in place draining well with clear yellow output.Oral care provided with peridex mouth wash. Restraints on both wrist d/t patient trying to pull out IV lines.Continue safety measure. bed alarm on.
[2020-06-01] MEDS: OLANZAPINE ZYDIS 5 MG TAB.RAPDIS PO SCH (20:19)
[2020-06-02 00:32] VITALS: BP 129/93
--- NOTE | 2020-06-02 03:54 | NUR ---
patient resting quietly in his bed. f/c draining yellow urine. no s/s of distress noted.
[2020-06-02 04:00] VITALS: BP 114/65
[2020-06-02 05:29] VITALS: BP 114/65
--- NOTE | 2020-06-02 06:11 | NUR ---
NSG: Remain confused through the night. slept well. continue on both wrist with soft restraint with mittens due to patient pulling iv lines and f/c. continue monitor for safety.
[2020-06-02 06:28] LABS: CREATININE 0.8 mg/dL (0.6-1.3); MAGNESIUM 1.6 mg/dL (1.8-2.4); POTASSIUM 3.6 mmol/L (3.5-5.1)
[2020-06-02] MEDS: BLOOD SUGAR DIAGNOSTIC 1 EACH STRIP VI SCH ×2 (06:31→10:58)
[2020-06-02] MEDS: INSULIN REGULAR, HUMAN 300 UNIT/3 ML VIAL SQ PRN ×2 (08:18→13:40)
[2020-06-02] MEDS: FAMOTIDINE. 20 MG/2 ML VIAL IV SCH (08:21)
[2020-06-02] MEDS: FLUCONAZOLE 100 MG TABLET PO SCH (08:31)
[2020-06-02] MEDS: ASPIRIN 81 MG TAB.CHEW PO SCH (08:31)
[2020-06-02] MEDS: NITROFURANTOIN/NITROFURAN MAC 100 MG CAPSULE PO SCH (08:31)
[2020-06-02] MEDS: ENOXAPARIN SODIUM 40 MG/0.4 ML DISP.SYRIN SQ SCH (08:32)
[2020-06-02] MEDS: GLUCERNA SHAKE VANILLA 237 ML CAN PO SCH ×2 (09:11→12:12)
[2020-06-02] MEDS: CHLORHEXIDINE GLUCONATE 15 ML MOUTHWASH MM SCH (09:12)
[2020-06-02] MEDS ORDERED: MAGNESIUM SULFATE/D5W 100 ML IV SCH (10:30)
[2020-06-02] MEDS ORDERED: MAGNESIUM OXIDE 400 MG TABLET PO ONE (10:45)
[2020-06-02 11:44] VITALS: BP 108/59
[2020-06-02] MEDS ORDERED: ENOX40DI SQ (12:00)
[2020-06-02] MEDS ORDERED: ACET325T53 PO (12:00)
[2020-06-02] MEDS ORDERED: OLAN5TAB6 PO (12:00)
[2020-06-02] MEDS ORDERED: NITR100C11 PO (12:00)
[2020-06-02] MEDS ORDERED: FLUC100T PO (12:00)
[2020-06-02] MEDS ORDERED: CHLO473M7 MM (12:00)
[2020-06-02] MEDS ORDERED: Blood Sugar Diagnostic VI (12:00)
[2020-06-02] MEDS ORDERED: NUT.237L28 PO (12:00)
[2020-06-02] MEDS ORDERED: FAMO20VI2 PO (12:00)
[2020-06-02] MEDS ORDERED: INSU100V28 SQ (12:00)
--- NOTE | 2020-06-02 12:39 | NUR ---
dc ng tube per md orders
[2020-06-02 16:14] VITALS: BP 130/76
--- NOTE | 2020-06-02 16:19 | NUR ---
DC ORDERS RECEIVED NOTED AND CARRIED OUT,DC INSTRUCTION AND RN REPORT GIVEN TO THE [facility].DC HEPLOCK PER MD ORDERS,PT LEFT THE FACILITY VIA AMBULANCES IN STABLE CONDITION
== END 2020-06-02 16:22 | DRG 871 ==
LOC: ER 05:42 → TELE3 09:49 → MEDSURG3 05-23 13:35
PROVIDERS: ADMIT Nurse Practitioner Acute Care; ATTEND Nurse Practitioner Acute Care
DX: A41.9 Sepsis, unspecified organism (principal); E11.00 Type 2 diabetes mellitus with hyperosmolarity without nonketotic hyperglycemic-hyperosmolar coma (NKHHC); N17.0 Acute kidney failure with tubular necrosis; G93.41 Metabolic encephalopathy; J96.01 Acute respiratory failure with hypoxia; E43 Unspecified severe protein-calorie malnutrition; J69.0 Pneumonitis due to inhalation of food and vomit; E87.1 Hypo-osmolality and hyponatremia; E87.2 Acidosis; N39.0 Urinary tract infection, site not specified; B37.49 Other urogenital candidiasis; Z79.4 Long term (current) use of insulin; Z59.0 Homelessness; E87.6 Hypokalemia; Z79.82 Long term (current) use of aspirin; F29 Unspecified psychosis not due to a substance or known physiological condition; E88.09 Other disorders of plasma-protein metabolism, not elsewhere classified; Z68.23 Body mass index [BMI] 23.0-23.9, adult; F39 Unspecified mood [affective] disorder; R65.20 Severe sepsis without septic shock; R33.9 Retention of urine, unspecified; B95.2 Enterococcus as the cause of diseases classified elsewhere; Z79.84 Long term (current) use of oral hypoglycemic drugs; I10 Essential (primary) hypertension
CPT/HCPCS: 36415; 62270; 70030-TC; 70450; 71045; 76770; 83550; 83605; 83615; 83690; 83735; 84100; 84156; 84157; 84300; 85025; 85730; 87040; 87077; 87086; 87205; 89051; 93005; A4663; C1758; G0378; G0480; J0696; J1630; J1650; J1815; J2060; J2358; J2405; J2543; J3475; J3480; J3490; J7030; J7042; J7050; J7060

== ENCOUNTER 2024-05-28 12:27 | Emergency (ER) | payer MEDICARE, OTHER ==
[~2024-05-28] VITALS: Ht 170.2 cm; Wt 77.1 kg
[~2024-05-28 12:27] MED LIST changes: +ACET325T53 PO; -BP MEDICATION; +Blood Sugar Diagnostic VI; +CHLO473M7 MM; +ENOX40DI SQ; +FAMO20VI2 PO; +FLUC100T PO; +INSU100V28 SQ; +NITR100C11 PO; +NUT.237L28 PO; +OLAN5TAB6 PO
[2024-05-28] MEDS: IV NORMAL SALINE 1000 ML BAG IV ONE (12:53)
[2024-05-28 13:15] LABS: BASOPHILS # (AUTO) 0.1 K/UL (0.0-0.2); BASOPHILS % (AUTO) 1.1 % (0.0-2.0); EOSINOPHILS # (AUTO) 0.1 K/uL (0.0-0.7); EOSINOPHILS % (AUTO) 1.2 % (0.0-7.0); HEMOGLOBIN 14.6 g/dL (12.5-16.3); LYMPHOCYTES # (AUTO) 1.2 K/uL (0.8-4.8); LYMPHOCYTES % (AUTO) 16.5 % (20.5-51.5); MEAN CORPUSCULAR HEMOGLOBIN 30.6 uug (23.8-33.4); MEAN CORPUSCULAR HGB CONC 34 g/dL (32.5-36.3); MONOCYTES # (AUTO) 0.6 K/uL (0.1-1.30); MONOCYTES % (AUTO) 7.7 % (0.0-11.0); NEUTROPHILS # (AUTO) 5.3 K/uL (1.8-8.9); NEUTROPHILS % (AUTO) 73.5 % (38.5-71.5); PLATELET COUNT (AUTO) 202 K/uL (152-348); RED BLOOD CELL COUNT(AUTO) 4.78 MIL/uL (4.06-5.63); RED CELL DISTRIBUTION WIDTH 14.7 % (12.1-16.2); WHITE BLOOD COUNT (AUTO) 7.2 K/uL (3.6-10.2)
[2024-05-28 13:25] LABS: CALCIUM 8.6 mg/dL (8.5-10.1); CARBON DIOXIDE 22 mmol/L (21-32); CHLORIDE 106 mmol/L (98-107); CREATININE 2.4 mg/dL (0.6-1.3); GLUCOSE 158 mg/dL (74-106); POTASSIUM 4.4 mmol/L (3.5-5.1); SODIUM SERUM 138 mmol/L (136-145); UREA NITROGEN, BLOOD 49 mg/dL (7-18)
[2024-05-28 13:26] LABS: DIFFERENTIAL COMMENT 1
[2024-05-28 13:38] LABS: ALANINE AMINOTRANSFERASE 20 U/L (16-63); ALBUMIN 3.5 g/dL (3.4-5.0); ALKALINE PHOSPHATASE 132 U/L (50-136); ASPARTATE AMINOTRANSFERASE 19 U/L (15-37); BILIRUBIN,DIRECT 0.1 mg/dL (0.0-0.2); BILIRUBIN,TOTAL 0.5 mg/dL (0.2-1.0); TOTAL PROTEIN, SERUM 7.9 g/dL (6.4-8.2)
[2024-05-28 14:46] VITALS: O2SAT 97
[2024-05-28] MEDS ORDERED: OXYCODONE/APAP 5-325 MG TABLET ONE (15:39)
[2024-05-28] MEDS: OXYCODONE/APAP 5-325 MG TABLET PO ONE (15:42)
[2024-05-28] MEDS ORDERED: HYDR-3980 PO (15:47)
== END 2024-05-28 16:46 | disposition home or self-care (01) ==
LOC: ER 12:27
DX: R53.1 Weakness (principal); E11.22 Type 2 diabetes mellitus with diabetic chronic kidney disease; I13.10 Hypertensive heart and chronic kidney disease without heart failure, with stage 1 through stage 4 chronic kidney disease, or unspecified chronic kidney disease; N18.9 Chronic kidney disease, unspecified; E11.51 Type 2 diabetes mellitus with diabetic peripheral angiopathy without gangrene; M79.604 Pain in right leg; R51.9 Headache, unspecified; R07.9 Chest pain, unspecified; Z79.4 Long term (current) use of insulin; Z79.82 Long term (current) use of aspirin; Z60.2 Problems related to living alone; Z59.00 Homelessness unspecified
CPT/HCPCS: 99285; 96360; 70450; 71045; 80076; 80048; 83735; 85025; 84484; 36415; 93005; 83605; J7040; A4606; A4663; C1758

== ENCOUNTER 2024-06-25 16:42 | Emergency (ER) | payer MEDICARE, OTHER ==
[~2024-06-25] VITALS: Ht 170.2 cm; Wt 68.0 kg
[~2024-06-25 16:42] MED LIST changes: +HYDR-3980 PO
[2024-06-26 00:43] VITALS: BP 113/73; TEMP 97.5; O2SAT 99
== END 2024-06-26 00:43 | disposition left against medical advice (07) ==
LOC: ER 16:42
DX: Z13.89 Encounter for screening for other disorder (principal); E11.9 Type 2 diabetes mellitus without complications; Z79.82 Long term (current) use of aspirin; Z59.02 Unsheltered homelessness
CPT/HCPCS: A4606; A4663

== ENCOUNTER 2024-06-26 02:01 | Emergency (ER) | payer MEDICARE, OTHER ==
[~2024-06-26] VITALS: Ht 170.2 cm; Wt 68.0 kg
[2024-06-26 10:08] VITALS: BP 125/78; TEMP 98; O2SAT 100
== END 2024-06-26 10:00 | disposition home or self-care (01) ==
LOC: ER 02:04
DX: Z13.89 Encounter for screening for other disorder (principal); Z79.82 Long term (current) use of aspirin; Z59.02 Unsheltered homelessness
CPT/HCPCS: A4606; A4663